=== PATIENT | male | born 1970 | race Caucasian/White ===

== ENCOUNTER 2018-04-20 16:39 | Emergency (ER) | payer BC, OTHER ==
[2018-04-20 17:50] LABS: ABS Basophils 0.1 10^3/ul (0-0.2); ABS Eosinophils 0.3 10^3/ul (0-0.6); ABS Lymphocytes 2.7 10^3/ul (1.0-4.8); ABS Monocytes 0.6 10^3/ul (0-0.8); ABS Neutrophils 3.6 10^3/ul (1.5-7.7); ABS Nucleated RBC 0 10^3/ul; Eosinophil % 4.8 % (0-6); Hematocrit 42 % (42-52); Hemoglobin 14.6 g/dl (14.0-18.0); Lymphocyte % 36.5 % (25-47); Mean Corpuscular HGB Conc 34 g/dl (31-36); Mean Corpuscular Hemoglobin 29 pg (27-31); Mean Corpuscular Volume 85 fL (80-94); Mean Platelet Volume 7.7 um3 (7.4-10.4); Nucleated Red Blood Cells % 0.1; Platelet Count 250 10^3/ul (150-450); Red Blood Count 4.96 10^6/ul (4.00-5.40); Red Cell Distribution Width 15 % (10.5-15); White Blood Count 7.3 10^3/ul (3.5-10.8)
[2018-04-20 18:08] LABS: EGFR Non-African American 83.6 (>60)
[2018-04-20 20:04] VITALS: BP 158/78
[2018-04-20] MEDS ORDERED: cloNIDine TAB* 0.1 MG PO ONE (21:41)
--- NOTE | 2018-04-20 22:03 | ED ---
Hypertension - HPI Summary HPI Summary: This patient is a 47 year old M presenting to [facility] accompanied by his with a chief complaint of high blood pressure since this afternoon. Patient notes that he noticed a spot of blood in his right eye. The patient rates the pain 0/10 in severity. Symptoms aggravated by recent stress at work. Symptoms alleviated by nothing. Patient reports that he put on some weight this year and is physically active. Patient denies vomiting or straining vision. - History of Current Complaint Chief Complaint: EDHypertension Stated Complaint: ELEVATED BLOOD PRESSURE Time Seen by Provider: 04/20/18 21:25 Hx Obtained From: Patient Onset/Duration: Started Hours Ago, Atraumatic, Still Present Timing: Lasting Hours Aggravating Factor(s): Other: - recent stress at work Alleviating Factor(s): Nothing Associated Signs & Symptoms: Other: - spot of blood in right eye - Allergies/Home Medications Allergies/Adverse Reactions: Allergies Allergy/AdvReac Type Severity Reaction Status Date / Time No Known Allergies Allergy Verified 04/20/18 17:10 PMH/Surg Hx/FS Hx/Imm Hx Cardiovascular History: Denies: Hx Hypertension Opthamlomology History: Denies: Hx Legally Blind EENT History: Denies: Hx Deafness - Surgical History Surgery Procedure, Year, and Place: none Infectious Disease History: No Infectious Disease History: Denies: Traveled Outside the [place] in Last 30 Days - Family History Known Family History: Negative: Seizure Disorder Review of Systems Positive: Other - spot of blood in right eye Negative: Epistaxis Positive: Other - hypertension. Negative: Chest Pain Negative: Vomiting Negative: Rash All Other Systems Reviewed And Are Negative: Yes Physical Exam - Summary Physical Exam Summary: VITAL SIGNS: Reviewed. GENERAL: Patient is a well-developed and nourished MALE who is lying comfortable in the stretcher. Patient is not in any acute respiratory distress. HEAD AND FACE: No signs of trauma. No ecchymosis, hematomas or skull depressions. No sinus tenderness. EYES: PERRLA, EOMI x 2, No nystagmus. Right eye has minimal subconjunctival hemorrhage at temporal side EARS: Hearing grossly intact. Ear canals and tympanic membranes are within normal limits. MOUTH: Oropharynx within normal limits. NECK: Supple, trachea is midline, no adenopathy, no JVD, no carotid bruit, no c- spine tenderness, neck with full ROM. CHEST: Symmetric, no tenderness at palpation LUNGS: Clear to auscultation bilaterally. No wheezing or crackles. CVS: Regular rate and rhythm, S1 and S2 present, no murmurs or gallops appreciated. ABDOMEN: Soft, non-tender. No signs of distention. No rebound no guarding, and no masses palpated. Bowel sounds are normal. EXTREMITIES: FROM in all major joints, no edema, no cyanosis or clubbing. NEURO: Alert and oriented x 3. No acute neurological deficits. Speech is normal and follows commands. SKIN: Dry and warm Triage Information Reviewed: Yes Vital Signs On Initial Exam: Initial Vitals Temp Pulse Resp BP Pulse Ox 97.8 F 64 16 164/106 96 04/20/18 17:07 04/20/18 17:07 04/20/18 17:07 04/20/18 17:07 04/20/18 17:07 Vital Signs Reviewed: Yes Diagnostics - Vital Signs Vital Signs Temp Pulse Resp BP Pulse Ox 04/20/18 20:03 97.6 F 67 158/78 97 04/20/18 17:07 97.8 F 64 16 164/106 96 - Laboratory Lab Results: Lab Results 04/20/18 04/20/18 Range/Units 17:39 17:39 WBC 7.3 (3.5-10.8) 10^3/ul RBC 4.96 (4.00-5.40) 10^6/ul Hgb 14.6 (14.0-18.0) g/dl Hct 42 (42-52) % MCV 85 (80-94) fL MCH 29 (27-31) pg MCHC 34 (31-36) g/dl RDW 15 (10.5-15) % Plt Count 250 (150-450) 10^3/ul MPV 7.7 (7.4-10.4) um3 Neut % (Auto) 49.4 (38-83) % Lymph % (Auto) 36.5 (25-47) % Howard % (Auto) 8.5 H (0-7) % Eos % (Auto) 4.8 (0-6) % Baso % (Auto) 0.8 (0-2) % Absolute Neuts (auto) 3.6 (1.5-7.7) 10^3/ul Absolute Lymphs (auto) 2.7 (1.0-4.8) 10^3/ul Absolute Monos (auto) 0.6 (0-0.8) 10^3/ul Absolute Eos (auto) 0.3 (0-0.6) 10^3/ul Absolute Basos (auto) 0.1 (0-0.2) 10^3/ul Absolute Nucleated RBC 0 10^3/ul Nucleated RBC % 0.1 Sodium 138 (135-145) mmol/L Potassium 4.2 (3.5-5.0) mmol/L Chloride 103 (101-111) mmol/L Carbon Dioxide 29 (22-32) mmol/L Anion Gap 6 (2-11) mmol/L BUN 14 (6-24) mg/dL Creatinine 0.96 (0.67-1.17) mg/dL Est GFR ( Amer) 101.2 (>60) Est GFR (Non-Af Amer) 83.6 (>60) BUN/Creatinine Ratio 14.6 (8-20) Glucose 95 (70-100) mg/dL Calcium 9.5 (8.6-10.3) mg/dL Total Bilirubin 0.50 (0.2-1.0) mg/dL AST 30 (13-39) U/L ALT 28 (7-52) U/L Alkaline Phosphatase 57 (34-104) U/L Total Protein 7.2 (6.4-8.9) g/dL Albumin 4.7 (3.2-5.2) g/dL Globulin 2.5 (2-4) g/dL Albumin/Globulin Ratio 1.9 (1-3) Result Diagrams: 04/20/18 17:39 04/20/18 17:39 Lab Statement: Any lab studies that have been ordered have been reviewed, and results considered in the medical decision making process. Hypertension Course/Dx - Course Course Of Treatment: Patient is a 47 year old M reporting high blood pressure and right minimal subconjunctival hemorrhage. In the ED, the patient was given Catapres. Patient will be discharged home with prescription for lisinopril and is advised to monitor his blood pressure and to follow up with his PCP in 1-2 days. The patient is agreeable with this plan. - Diagnoses Provider Diagnoses: Subconjunctival hemorrhage of right eye, Hypertension Discharge - Sign-Out/Discharge Documenting (check all that apply): Patient Departure - discharge home - Discharge Plan Condition: Stable Disposition: HOME Prescriptions: Lisinopril 5 mg PO DAILY #30 tablet Patient Education Materials: Subconjunctival Hemorrhage (ED), Hypertension (ED) Referrals: Care [facility] [Outside] - 2 Days Additional Instructions: Take lisinopril as directed. Monitor your blood pressure. Follow up with your primary care physician in 1-2 days. Return to the emergency department with any new or worsening symptoms. - Attestation Statements Document Initiated by Scribe: Yes Documenting Scribe: lAena Jain Provider For Whom Scribe is Documenting (Include Credential): Marques Faye MD Scribe Attestation: Alena Brown, scribed for Marques Faye MD on 04/20/18 at 2205.
== END 2018-04-20 22:15 | disposition home or self-care (01) ==
LOC: ED 16:39
DX: I10 Essential (primary) hypertension (principal); H11.31 Conjunctival hemorrhage, right eye; R00.1 Bradycardia, unspecified
CPT/HCPCS: 36415; 80053; 85025; 93005; 99283; A9270-GY